=== PATIENT | female | born 1955 | race Hispanic/Latino ===

== ENCOUNTER → 2018-02-23 | Outpatient (CLI) | payer MEDICARE ==
[~2018-02-23] MED LIST: ALENDRONATE SOD70 MG PO; BUPROPION XL150 MG PO; CLONAZEPAM0.5 MG PO; CRESTOR10 MG PO; DIOVAN80 MG PO; GLIPIZIDE ER10 MG PO; GLIPIZIDE10 MG PO; JANUVIA100 MG PO; LOPID600 MG PO; MELOXICAM7.5 MG PO; METFORMIN HCL500 MG PO; NEXIUM40 MG PO; NIFEDICAL XL30 MG PO; PRAVASTATIN SOD80 MG PO; PROZAC20 MG PO; STOOL SOFTENER100 MG PO; TOPIRAMATE25 MG PO; WELCHOL3.75 GM PO
--- NOTE | 2018-02-24 09:31 | Diagnostic Imaging Report ---
TECHNIQUE: Magnetic resonance imaging of the RIGHT KNEE was performed WITHOUT injected contrast. HISTORY: Right knee pain COMPARISON: None available. FINDINGS: LIGAMENTS AND TENDONS: ACL: Intact PCL: Intact Collateral ligaments: Intact Iliotibial band: Unremarkable Popliteal tendon: Intact Extensor mechanism: Intact JOINT: Menisci: Medial: Intact Lateral: Intact Articular Cartilage: Medial Compartment: Partial-thickness cartilage loss Lateral Compartment: Partial thickness cartilage loss Patellofemoral Compartment: Partial thickness cartilage loss Joint Fluid: The amount of fluid within the joint is within physiologic limits. BONE: No focal or infiltrative bone marrow replacing abnormality. No acute fracture. SOFT TISSUES: Otherwise, unremarkable. IMPRESSION: No acute osseous. Ligamentous or meniscal abnormality. Signed by: Dr. Noe Burgess M.D. on 02/24/2018 9:28 AM
== END ==
LOC: MRI 06:48
PROVIDERS: ATTEND Specialist
DX: M23.91 Unspecified internal derangement of right knee (principal)